=== PATIENT | male | born 1965 | race Caucasian/White ===

== ENCOUNTER 2016-06-05 07:35 | Inpatient (IN) | payer OTHER ==
[2016-06-05] MEDS ORDERED: Magnesium Hydroxide (MOM) 30 mL UDC PO PRN (08:25)
[2016-06-05] MEDS ORDERED: Maalox 30 mL Cup PO PRN (08:25)
[2016-06-05] MEDS ORDERED: Enoxaparin Subq per Pharmacy MC SCH (08:45)
[2016-06-05 09:03] LABS: % BASOPHILS 0.2 % (0.0-2.0); % EOSINOPHILS 0.9 % (0.0-5.0); % LYMPHOCYTES 26.3 % (20.0-50.0); % MONOCYTES 13.1 % (2.0-10.0); % NEUTROPHILS 59.5 % (40.0-80.0); HEMATOCRIT 37.3 % (39.0-49.0); HEMOGLOBIN 13.1 gm/dL (13.2-17.3); MEAN CELL VOLUME 100.6 fl (80-99); MEAN CORPUSCULAR HEMOGLOBIN 35.3 pg (26.0-30.0); MEAN CORPUSCULAR HGB CONC 35.1 pg (28.0-36.0); MEAN PLATELET VOLUME 7.2 fl; PLATELET COUNT 83 Th/cmm (150-400); RED CELL DISTRIBUTION WIDTH 13.9 % (11.5-20.0); WHITE BLOOD COUNT 3.2 Th/cmm (4.8-10.8)
[2016-06-05 09:27] LABS: ALB/GLOB RATIO 0.9 (1.0-1.8); ALKALINE PHOSPHATASE 90 U/L (34-104); ANION GAP 9.9 (7.0-16.0); BUN - UREA NITROGEN 6 mg/dL (7-25); CALCIUM SERUM 8.4 mg/dL (8.6-10.3); CARBON DIOXIDE 26.3 mEq/L (21.0-31.0); CHLORIDE 100 mEq/L (98-107); CREATININE - SERUM 0.5 mg/dL (0.7-1.3); GLUCOSE 96 mg/dL (70-105); POTASSIUM SERUM 4.2 mEq/L (3.5-5.1); SGOT 22 U/L (13-39); SGPT/ALT 10 U/L (7-52); SODIUM SERUM 132 mEq/L (136-145)
[2016-06-05 09:38] VITALS: BP 126/70
[2016-06-05] MEDS ORDERED: Enoxaparin 100 mg/mL 1mL Syr SUBQ SCH (10:30)
[2016-06-05 10:36] LABS: INR 0.97 (0.5-1.4); PROTHROMBIN TIME (TEST) 10.1 SECONDS (9.5-11.5)
[2016-06-05] MEDS: Hydrocodone/APAP 10 mg/325 mg Tab PO PRN (11:17)
[2016-06-05] MEDS ORDERED: INSULIN ASPART SLIDING SCALE 100 UNITS/ML UNIT SUBQ SCH (11:30)
--- NOTE | 2016-06-05 14:02 | History & Physical ---
CHIEF COMPLAINT: Back pain. HISTORY OF PRESENT ILLNESS: The patient is a 51-year-old white male who has been transferred from [facility] ER. The patient presents from [facility] ER with complaints of back pain. The patient was complaining of swelling, erythema, and pain to the left leg for the last few days. The patient states that he has history of DVT in the right leg and was instructed to wear Unna boot on the left leg to prevent DVT in that leg. The patient denies fever or chills. The patient denies chest pain. The patient denies shortness of breath. The patient complains of pain, 10/10, and worse with touch on left lower extremity. PAST MEDICAL HISTORY: COPD, seizures, DVT, right lower extremity. PAST SURGICAL HISTORY: Removal of needle from left foot. ALLERGIES: No known allergies. SOCIAL HISTORY: Positive tobacco use, positive alcohol use. Denies IV drug use. REVIEW OF SYSTEMS: See history of present illness. PHYSICAL EXAMINATION: GENERAL: The patient is awake, alert, nontoxic in appearance. VITAL SIGNS: On admission, blood pressure 126/70. Vital signs at the ER were blood pressure 140/70, pulse 96, temperature 98.1, respiratory rate 18 and O2 on room air. HEENT: Normocephalic, atraumatic. Extraocular movements intact. Oropharynx clear. NECK: Supple, no thyromegaly. No lymphadenopathy. RESPIRATORY: Clear. No wheeze or rhonchi. CARDIOVASCULAR: S1, S2. No murmurs, rubs, or gallops. GASTROINTESTINAL: Soft, nontender, nondistended. Positive bowel sounds. GENITOURINARY: No significant suprapubic tenderness. BACK: No midline tenderness. EXTREMITIES: Equal pulses bilaterally. Edema in the left leg. SKIN: The patient has erythema on left lower leg. PSYCHIATRIC: Negative. NEUROLOGIC: Cranial nerves are intact. Sensation intact. Proprioception intact. Bilateral muscle strength grossly normal. RADIOLOGICAL TESTS: Ultrasound shows left popliteal thrombosis and left groin enlarged lymph node. IMPRESSION: 1. Left lower extremity cellulitis. 2. Left lower extremity (popliteal vein) thrombosis. 3. Chronic obstructive pulmonary disease. 4. Seizure disorder. 5. History of deep venous thrombosis, right lower extremity. PLAN: The patient is admitted to Med-Surg at [facility]. We will obtain Infectious Disease consultation with Dr. Alcira Amado. Hematology consultation will be obtained from Dr. Rice. We will obtain further labs and consultations as needed. JOB# [id number] [facility]
[2016-06-05] MEDS: Morphine Sulfate 2 mg/mL 1mL Syr IVP PRN ×3 (15:08→23:44)
--- NOTE | 2016-06-05 18:16 | Consultation ---
HEMATOLOGY/ONCOLOGY CONSULTATION REFERRING PHYSICIAN: Gagan Lisa M.D. REASON FOR CONSULTATION: Venous thrombosis. HISTORY OF PRESENT ILLNESS: The patient is a 51-year-old male who was complaining of left leg swelling and evaluated with venous duplex in [facility] and found to have venous thrombosis in left popliteal vein. The patient was transferred for insurance reasons to our hospital and he was also found to have mild thrombocytopenia; therefore, I was asked to evaluate. PAST MEDICAL HISTORY: COPD. venous thrombosis of the left lower extremity and he was treated with one month of Coumadin. The circumstances of short duration of Coumadin are unknown. SURGICAL HISTORY: Left foot surgery. SOCIAL HISTORY: Smoker, uses alcohol, and denies drug use. PHYSICAL EXAMINATION: GENERAL: Awake. No . VITAL SIGNS: Stable. No bleeding. CHEST: Good air entry. ABDOMEN: Soft. LABORATORY DATA: White count 3.2, hemoglobin 13.1, and platelets 83,000. Liver functions normal. Creatinine is 0.5. ASSESSMENT AND PLAN: Left lower extremity thrombosis and cellulitis. I agree with treatment with Lovenox to overlap his Coumadin until the ____ not between 2 and 3. Actually, the duration of anticoagulation should be more than 6 months in this patient with unclear precipitating factor. Thank you, Dr. Lisa, for the opportunity to participate in the care of this interesting case with you. JOB# [id number]
[2016-06-05 18:53] LABS: URINE COLOR ORANGE
[2016-06-05 18:54] LABS: URINE BILIRUBIN NEGATIVE (NEGATIVE); URINE BLOOD NEGATIVE (NEGATIVE); URINE GLUCOSE (UA) NEGATIVE (NEGATIVE); URINE KETONE TRACE mg/dL (NEGATIVE); URINE PH 8.5; URINE PROTEIN NEGATIVE (NEGATIVE); URINE RBC NONE SEEN /hpf (0-5)
[2016-06-05 18:55] LABS: URINE BACTERIA OCCASIONAL /hpf (NONE SEEN); URINE EPITHELIAL CELLS OCCASIONAL /lpf (FEW); URINE WBC 0-2 /hpf (0-5)
[2016-06-05] MEDS: Enoxaparin 100 mg/mL 1mL Syr SUBQ SCH (20:14)
--- NOTE | 2016-06-05 21:56 | Admit Criteria Form ---
Admit Criteria Forms - Admit Criteria Diagnosis: CELLULITIS Clinical Indications for Admission to Inpatient Care (Place 'X' for any and all applicable criteria): Admission is indicated for ANY ONE of the following(1)(2)(3)(4)(5): [ ]I. Limb-threatening infection [ ]II. High-risk comorbid condition as indicated by ANY ONE of the following: [ ]a) Uncontrolled diabetes (eg, HbA1c greater than 10% (0.1)) [ ]b) Cirrhosis [ ]c) Neutropenia [ ]d) Asplenia [ ]e) Immunosuppression [ ]f) Symptomatic heart failure [ ]III. Failure of outpatient therapy as indicated by ALL of the following: [ ]a) Progression or no improvement after adequate trial (minimum of 48 hours, with longer period for stable lower extremity infection) [ ]b) Adequate antibiotic regimen as indicated by use of ANY ONE of the following: [ ]i) First-generation cephalosporin (e.g., cephalexin) [ ]ii) Antistaphylococcal penicillin (e.g., dicloxacillin) [ ]iii) Penicillin-allergic patient regimen (clindamycin, extended-spectrum fluoroquinolone, or doxycycline) [ ]iv) Resistant organism (eg, methicillin-resistant Staphylococcus aureus) regimen (6) [ ]c) Outpatient intravenous therapy regimen is not appropriate due to ANY ONE of the following. (7)(8)(9)(10): [ ]i) It was tried and was not successful (eg, progression of infection). [ ]ii) It is not available or cannot be arranged in a clinically appropriate time frame (e.g., the next day). [ ]iii) Clinical presentation (eg, acuity of infection, rapidity of progression, confirmed or suspected bacteremia) is judged to require ALL of the following: [ ]1) Immediate initiation of intravenous therapy ( eg, cannot wait for next day) [ ]2) Intensity of patient monitoring and observation (eg, vital sign measurement, checks for infection progression) that cannot be provided at other than inpatient level of care [ ]IV. Mental status changes [ ]V. Bacteremia [ ]. Hemodynamic instability [ ]VII. Suspected necrotizing soft tissue infection (e.g., gas in tissue)(11)( 12) [ ]VIII. Orbital infection (13)(14) [ ]IX. Associated surgical procedure (e.g., abscess drainage, debridement) not amenable to outpatient, emergency department, or observation care [ ]X. Cutaneous gangrene [ ]XI. High fever (temperature greater than 39.5 degrees C (103.1 degrees F) (oral)) not responsive to outpatient, emergency department, or observation care therapy [X]XIII. Inpatient admission required rather than observation care (Also use Cellulitis: Observation Care as appropriate) because of ANY ONE of the following : [ ]a) Periorbital or perineal infection that is severe or worsening [ ]b) Severe pain requiring acute inpatient management [ ]c) IV fluid to replace significant ongoing (e.g., for over 24 hours) losses (greater than 3L/m2 per day) [ ]d) Compartment syndrome monitoring (17) [ ]e) Strict or protective (eg, laminar flow) isolation [ ]f) Urgent debridement or skin grafting [ ]g) Bone or joint debridement [ ]h) Immediate inpatient surgery [X]i) Other condition, treatment or monitoring requiring inpatient admission Extended stay beyond goal length of stay may be needed for (1)(18): [ ]a) Necrotizing soft tissue infection or fasciitis [ ]b) Gram-negative infection [ ]c) Methicillin-resistant Staphylococcal aureus (MRSA) infection [ ]d) Peripheral venous insufficiency with cellulitis [ ]e) Extensive edema [ ]f) Sepsis or continued Hemodynamic instability [ ]g) Continued high fever or mental status change [ ]h) Bacteremia [ ]i) Active serious comorbid conditions ( eg, heart failure, renal insufficiency) The original [facility] [employer] content created by [facility] [employer] has been revised. The portions of the content which have been revised are identified through the use of italic text or in bold, and [facility] has neither reviewed nor approved the modified material. All other unmodified content is copyright [facility] Please see references footnoted in the original [facility] edition 2016 Admit Criteria Met?: Yes
[2016-06-06] MEDS: Morphine Sulfate 2 mg/mL 1mL Syr IVP PRN ×5 (05:31→21:49)
[2016-06-06 06:10] LABS: INR 1.06 (0.5-1.4)
[2016-06-06 06:18] LABS: ANION GAP 7.9 (7.0-16.0); BUN - UREA NITROGEN 7 mg/dL (7-25); BUN/CREATININE RATIO 11.7; CALCIUM SERUM 8.7 mg/dL (8.6-10.3); CARBON DIOXIDE 27.8 mEq/L (21.0-31.0); CHLORIDE 101 mEq/L (98-107); CREATININE - SERUM 0.6 mg/dL (0.7-1.3); GLUCOSE 84 mg/dL (70-105); POTASSIUM SERUM 3.7 mEq/L (3.5-5.1); SODIUM SERUM 133 mEq/L (136-145)
[2016-06-06 06:51] LABS: HEMATOCRIT 37.5 % (39.0-49.0); HEMOGLOBIN 12.8 gm/dL (13.2-17.3); RED BLOOD COUNT 3.65 Mil/cmm (4.30-5.70); WHITE BLOOD COUNT 3.1 Th/cmm (4.8-10.8)
[2016-06-06 06:52] LABS: % LYMPHOCYTES 36.3 % (20.0-50.0); % MONOCYTES 10.4 % (2.0-10.0); % NEUTROPHILS 51.6 % (40.0-80.0); MEAN CELL VOLUME 102.6 fl (80-99); MEAN CORPUSCULAR HEMOGLOBIN 35.2 pg (26.0-30.0); MEAN CORPUSCULAR HGB CONC 34.3 pg (28.0-36.0); MEAN PLATELET VOLUME 8.3 fl; PLATELET COUNT 84 Th/cmm (150-400); RED CELL DISTRIBUTION WIDTH 13.7 % (11.5-20.0)
[2016-06-06 06:53] LABS: % BASOPHILS 0.2 % (0.0-2.0); % EOSINOPHILS 1.7 % (0.0-5.0); NEUTROPHILE ABSOLUTE 1.6 Th/cmm (1.8-8.0)
[2016-06-06] MEDS: Enoxaparin 100 mg/mL 1mL Syr SUBQ SCH ×2 (09:48→21:48)
[2016-06-06] MEDS ORDERED: Influenza Vaccine 0.5 mL Syr IM ONE (11:00)
[2016-06-06] MEDS ORDERED: Pneumococcal Vaccine 0.5 mL Vial IM ONE (11:00)
[2016-06-06] MEDS ORDERED: Enoxaparin Subq per Pharmacy MC SCH (11:15)
--- NOTE | 2016-06-07 00:29 | Progress Notes ---
SUBJECTIVE: The patient is awake, alert. The patient is on IV antibiotics. The patient receiving inpatient anticoagulation therapy and wound care. PHYSICAL EXAMINATION: VITAL SIGNS: Temperature 97.6, pulse per nursing notes, respiratory rate 18, O2 sat 96% on room air. CARDIOVASCULAR: S1 and S2. RESPIRATORY: Clear. GASTROINTESTINAL: Soft, +BS. EXTREMITIES: Left lower extremity erythema, improved. LABORATORY DATA: Hematology: WBC 3.1, hemoglobin 12.8, hematocrit per labs, platelet count per labs, 10% monocytes. ESR is 38. PT 11, INR is 1.06. Chemistry: Sodium 133, potassium per labs, bicarbonate 27, anion gap per labs, BUN 7, creatinine 0.6. GFR 60, glucose is 84, calcium 8.7. MICROBIOLOGY: Culture results pending. RADIOLOGY: No new results. ASSESSMENT: 1. Leukopenia. 2. Anemia. 3. Thrombocytopenia. 4. Pancytopenia. 5. Hyponatremia. 6. Left lower extremity cellulitis. 7. Left lower extremity popliteal vein thrombosis. 8. Chronic obstructive pulmonary disease. 9. Seizure disorder. 10. Deep vein thrombosis of right lower extremity. PLAN: Continue current medications. Obtain labs in a.m. Continue inpatient wound care. We will obtain PT evaluation. JOB# [id number] [facility]
[2016-06-07] MEDS: Morphine Sulfate 2 mg/mL 1mL Syr IVP PRN ×5 (05:24→22:59)
--- NOTE | 2016-06-07 05:57 | Consultation ---
INFECTIOUS DISEASE CONSULTATION PRIMARY PHYSICIAN: Gagan Lisa M.D. HISTORY OF PRESENT ILLNESS: This is a 51-year-old male who was brought to the Emergency Room with 4-week history of recurrent cellulitis and got worse recently, decided to come to the Emergency Room, where the patient was evaluated and admitted to the hospital. Infectious Disease consultation was called for further treatment. The patient was started on IV antibiotics. Wound culture requested. The patient had ____ possible. The patient initially went to [facility]. PAST MEDICAL HISTORY: COPD. PAST SURGICAL HISTORY: Left foot surgery. SOCIAL HISTORY: Smoker. REVIEW OF SYSTEMS: A 14-point review of system negative except ____. PHYSICAL EXAMINATION: GENERAL: The patient is alert and awake. VITAL SIGNS: Stable. HEENT: Mild pallor. No icterus or plaque. NECK: Supple. No ____. LUNGS: Breath sounds bilateral vesicular. HEART: S1, S2. ABDOMEN: Soft, nontender. EXTREMITIES: Both legs are swollen, left more than the right with multiple small folliculitis and wounds draining yellow liquid. LABORATORY DATA: The patient's venous duplex done at [place] was positive for DVT. White count 3000, hemoglobin is 13 g, platelets 83,000. Creatinine 0.6. DIAGNOSES: 1. Deep vein thrombosis. 2. Left leg cellulitis. 3. Pancytopenia. 4. Active smoker. PLAN: The patient was started on Zosyn. Wound culture. Anticoagulation. Hematology consultation. Rest of the care as ordered in [facility]. Thank you, Dr. Gagan Lisa, for this consultation. JOB# [id number]
[2016-06-07 06:02] LABS: % BASOPHILS 0.8 % (0.0-2.0); % EOSINOPHILS 3.2 % (0.0-5.0); % LYMPHOCYTES 41.9 % (20.0-50.0); % MONOCYTES 9.1 % (2.0-10.0); HEMATOCRIT 38.7 % (39.0-49.0); MEAN CELL VOLUME 102.5 fl (80-99); MEAN CORPUSCULAR HEMOGLOBIN 34.5 pg (26.0-30.0); MEAN CORPUSCULAR HGB CONC 33.6 pg (28.0-36.0); MEAN PLATELET VOLUME 8.6 fl; NEUTROPHILE ABSOLUTE 1.7 Th/cmm (1.8-8.0); PLATELET COUNT 98 Th/cmm (150-400); RED BLOOD COUNT 3.78 Mil/cmm (4.30-5.70); WHITE BLOOD COUNT 3.7 Th/cmm (4.8-10.8)
[2016-06-07 06:32] LABS: BUN - UREA NITROGEN 8 mg/dL (7-25); CALCIUM SERUM 8.8 mg/dL (8.6-10.3); CARBON DIOXIDE 25.3 mEq/L (21.0-31.0); CHLORIDE 103 mEq/L (98-107); CREATININE - SERUM 0.5 mg/dL (0.7-1.3); GLUCOSE 96 mg/dL (70-105); POTASSIUM SERUM 3.3 mEq/L (3.5-5.1); SODIUM SERUM 133 mEq/L (136-145)
[2016-06-07 06:39] LABS: INR 1.48 (0.5-1.4); PROTHROMBIN TIME (TEST) 15.7 SECONDS (9.5-11.5)
[2016-06-07] MEDS: Enoxaparin 100 mg/mL 1mL Syr SUBQ SCH ×2 (10:06→21:48)
--- NOTE | 2016-06-07 16:22 | Diagnostic Imaging Report ---
Abdominal ultrasound HISTORY: Splenomegaly The liver is enlarged. The spleen measures 11.5 x 4.6 x 3.9 cm. No focal hepatic or splenic lesions. The exam of the gallbladder demonstrates intraluminal echogenic densities with acoustic shadowing consistent with cholelithiasis. No biliary dilatation. The pancreas cannot be seen due to bowel gas. The left kidney is somewhat enlarged (14.1 x 5.9 x 5.4 cm). No focal renal lesions or hydronephrosis. No other retroperitoneal or intra-abdominal abnormalities. IMPRESSION: 1. Hepatomegaly 2. Findings consistent with cholelithiasis 3. Mildly enlarged left kidney with no focal lesions or hydronephrosis.
[2016-06-07] MEDS ORDERED: Vancomycin HCl 1.5 GM in Sodium Chloride 0.9% 500 ML IV SCH (18:00)
[2016-06-07] MEDS ORDERED: Potassium Chloride 20 mEq ER Tab PO ONE (20:05)
[2016-06-08] MEDS: Morphine Sulfate 2 mg/mL 1mL Syr IVP PRN ×4 (04:54→20:05)
[2016-06-08 05:42] LABS: INR 1.66 (0.5-1.4); PROTHROMBIN TIME (TEST) 17.8 SECONDS (9.5-11.5)
[2016-06-08 05:47] LABS: HEMATOCRIT 39.1 % (39.0-49.0); HEMOGLOBIN 13.2 gm/dL (13.2-17.3); MEAN CELL VOLUME 102.9 fl (80-99); MEAN CORPUSCULAR HEMOGLOBIN 34.7 pg (26.0-30.0); MEAN CORPUSCULAR HGB CONC 33.7 pg (28.0-36.0); MEAN PLATELET VOLUME 7.9 fl; PLATELET COUNT 115 Th/cmm (150-400); RED CELL DISTRIBUTION WIDTH 13.6 % (11.5-20.0)
[2016-06-08 05:54] LABS: ANION GAP 9.2 (7.0-16.0); BUN - UREA NITROGEN 8 mg/dL (7-25); CALCIUM SERUM 8.6 mg/dL (8.6-10.3); CARBON DIOXIDE 23.6 mEq/L (21.0-31.0); CHLORIDE 104 mEq/L (98-107); CREATININE - SERUM 0.5 mg/dL (0.7-1.3); GLUCOSE 96 mg/dL (70-105); POTASSIUM SERUM 3.8 mEq/L (3.5-5.1); SODIUM SERUM 133 mEq/L (136-145)
[2016-06-08 06:01] LABS: WHITE BLOOD COUNT 3.4 Th/cmm (4.8-10.8)
[2016-06-08] MEDS: Enoxaparin 100 mg/mL 1mL Syr SUBQ SCH ×2 (09:26→20:06)
[2016-06-08] MEDS: Hydrocodone/APAP 10 mg/325 mg Tab PO PRN (09:28)
[2016-06-08 10:19] LABS: EOSINOPHIL 4 % (0-5); NEUTROPHILS 40 % (40-80); TOTAL CELLS COUNTED 100
[2016-06-08 10:20] LABS: PLATELET ESTIMATE DECREASED PLATELETS (NORMAL); PLATELET MORPHOLOGY NORMAL (NORMAL)
[2016-06-08] MEDS: Vancomycin HCl 1.5 GM in Sodium Chloride 0.9% 500 ML IV SCH ×2 (10:52→20:06)
[2016-06-08] MEDS: Hydrocodone/APAP 5mg/325mg Tab PO PRN (13:25)
--- NOTE | 2016-06-08 17:29 | Infectious Disease Prog Note ---
Infectious Disease Subjective - Review of Systems Service Date: 06/08/16 Subjective: cc cellulitis dvt hpi- pt wound cx gnr on iv bax ros no fever o/e nvss chest clar abd soft cellulitis less Infectious Disease Objective - Results Result Diagrams: 06/08/16 05:15 06/08/16 05:15 Recent Labs: Laboratory Last Values WBC 3.4 Th/cmm (4.8-10.8) L 06/08/16 05:15 RBC 3.80 Mil/cmm (4.30-5.70) L 06/08/16 05:15 Hgb 13.2 gm/dL (13.2-17.3) 06/08/16 05:15 Hct 39.1 % (39.0-49.0) 06/08/16 05:15 MCV 102.9 fl (80-99) H 06/08/16 05:15 MCH 34.7 pg (26.0-30.0) H 06/08/16 05:15 MCHC Differential 33.7 pg (28.0-36.0) 06/08/16 05:15 RDW 13.6 % (11.5-20.0) 06/08/16 05:15 Plt Count 115 Th/cmm (150-400) L 06/08/16 05:15 MPV 7.9 fl 06/08/16 05:15 Neutrophils % 45.0 % (40.0-80.0) 06/07/16 05:15 Lymphocytes % 41.9 % (20.0-50.0) 06/07/16 05:15 Monocytes % 9.1 % (2.0-10.0) 06/07/16 05:15 Eosinophils % 3.2 % (0.0-5.0) 06/07/16 05:15 Basophils % 0.8 % (0.0-2.0) 06/07/16 05:15 Neutrophils (Manual) 40 % (40-80) 06/08/16 05:15 Lymphocytes 40 % (20-50) 06/08/16 05:15 Monocytes 14 % (2-10) H 06/08/16 05:15 Eosinophils 4 % (0-5) 06/08/16 05:15 Atypical Lymphocytes 2 % 06/08/16 05:15 Platelet Estimate DECREASED PLATELETS (NORMAL) 06/08/16 05:15 Platelet Morphology NORMAL (NORMAL) 06/08/16 05:15 RBC Morph Micro Appear NORMAL (NORMAL) 06/08/16 05:15 ESR 33 mm/hr (0-20) H 06/08/16 05:15 PT 17.8 SECONDS (9.5-11.5) H 06/08/16 05:15 INR 1.66 (0.5-1.4) H 06/08/16 05:15 Sodium 133 mEq/L (136-145) L 06/08/16 05:15 Potassium 3.8 mEq/L (3.5-5.1) 06/08/16 05:15 Chloride 104 mEq/L (98-107) 06/08/16 05:15 Carbon Dioxide 23.6 mEq/L (21.0-31.0) 06/08/16 05:15 Anion Gap 9.2 (7.0-16.0) 06/08/16 05:15 BUN 8 mg/dL (7-25) 06/08/16 05:15 Creatinine 0.5 mg/dL (0.7-1.3) L 06/08/16 05:15 Est GFR ( Amer) > 60.0 ml/min (>90) 06/08/16 05:15 Est GFR (Non-Af Amer) > 60.0 ml/min 06/08/16 05:15 BUN/Creatinine Ratio 16.0 06/08/16 05:15 Glucose 96 mg/dL (70-105) 06/08/16 05:15 POC Glucose 95 MG/DL (70 - 105) 06/05/16 11:22 Calcium 8.6 mg/dL (8.6-10.3) 06/08/16 05:15 Total Bilirubin 1.0 mg/dL (0.3-1.0) 06/05/16 08:50 AST 22 U/L (13-39) 06/05/16 08:50 ALT 10 U/L (7-52) 06/05/16 08:50 Alkaline Phosphatase 90 U/L (34-104) 06/05/16 08:50 C-Reactive Protein 3.9 mg/dL (0.0-0.9) H 06/08/16 05:15 Total Protein 6.9 gm/dL (6.0-8.3) 06/05/16 08:50 Albumin 3.3 gm/dL (4.2-5.5) L 06/05/16 08:50 Globulin 3.6 gm/dL 06/05/16 08:50 Albumin/Globulin Ratio 0.9 (1.0-1.8) L 06/05/16 08:50 Urine Source CLEAN C 06/05/16 17:10 Urine Color ORANGE 06/05/16 17:10 Urine Clarity CLEAR (CLEAR) 06/05/16 17:10 Urine pH 8.5 06/05/16 17:10 Ur Specific [place] 1.015 (1.005-1.030) 06/05/16 17:10 Urine Protein NEGATIVE mg/dL (NEGATIVE) 06/05/16 17:10 Urine Glucose (UA) NEGATIVE mg/dL (NEGATIVE) 06/05/16 17:10 Urine Ketones TRACE mg/dL (NEGATIVE) 06/05/16 17:10 Urine Blood NEGATIVE (NEGATIVE) 06/05/16 17:10 Urine Nitrate NEGATIVE (NEGATIVE) 06/05/16 17:10 Urine Bilirubin NEGATIVE (NEGATIVE) 06/05/16 17:10 Urine Urobilinogen 1.0 E.U./dL (0.2 - 1.0) 06/05/16 17:10 Ur Leukocyte Esterase NEGATIVE (NEGATIVE) 06/05/16 17:10 Urine RBC NONE SEEN /hpf (0-5) 06/05/16 17:10 Urine WBC 0-2 /hpf (0-5) 06/05/16 17:10 Ur Epithelial Cells OCCASIONAL /lpf (FEW) 06/05/16 17:10 Urine Bacteria OCCASIONAL /hpf (NONE SEEN) 06/05/16 17:10 Urine Yeast FEW /hpf (NONE SEEN) H 06/05/16 17:10 - Physical Exam Vitals and I&O: Vital Signs Temp 98.4 F 06/08/16 12:00 Pulse 58 06/08/16 12:00 Resp 17 06/08/16 12:00 BP 127/73 06/08/16 12:00 Pulse Ox 98 06/08/16 12:00 Intake & Output 06/07/16 06/08/16 06/08/16 18:59 06:59 18:59 Intake Total 200 100 50 Balance 200 100 50 Intake: Intake, IV Amount 100 100 50 Piperacillin Sodium/ 100 100 50 Tazobact 3.375 gm In Sodium Chloride 0.9% 50 ml @ 100 mls/hr IV Q6HR [facility] Rx#:[id number] Oral 100 Other: # Voids 3 Active Medications: Current Medications Acetaminophen (Tylenol) 650 mg PO Q6H PRN PRN Reason: Mild Pain/Headache/T above 101 Stop: 08/04/16 08:24 Acetaminophen/Hydrocodone Bitart ([place] 10 Mg/325 Mg) 1 tab PO Q6H PRN PRN Reason: Pain (Severe) Stop: 08/04/16 08:24 Last Admin: 06/08/16 09:28 Dose: 1 tab Acetaminophen/Hydrocodone Bitart ([place] 5mg/325mg) 1 tab PO Q6H PRN PRN Reason: Moderate Pain Stop: 08/04/16 08:24 Last Admin: 06/08/16 13:25 Dose: 1 tab Al Hydrox/Mg Hydrox/Simethicone (Maalox) 30 ml PO Q6H PRN PRN Reason: Constipation Stop: 08/04/16 08:24 Enoxaparin Sodium (Lovenox) 90 mg SUBQ Q12HR [facility] Stop: 08/04/16 20:59 Last Admin: 06/08/16 09:26 Dose: 90 mg Gabapentin (Neurontin) 300 mg PO TID [facility] Stop: 08/04/16 08:59 Last Admin: 06/08/16 13:24 Dose: 300 mg Piperacillin Sod/Tazobactam (Sod 3.375 gm/ Sodium Chloride) 50 mls @ 100 mls/ hr IV Q6HR [facility] Stop: 08/04/16 11:59 Last Infusion: 06/08/16 16:54 Dose: Infused Vancomycin HCl 1.5 gm/ Sodium (Chloride) 500 mls @ 250 mls/hr IV Q12H [facility] Stop: 08/07/16 08:59 Last Admin: 06/08/16 10:52 Dose: 250 mls/hr Lorazepam (Ativan) 1 mg PO Q6H PRN; Protocol PRN Reason: Anxiety/Agitation Stop: 08/04/16 08:24 Last Admin: 06/08/16 13:25 Dose: 1 mg Magnesium Hydroxide (Milk Of Magnesia) 30 ml PO HS PRN PRN Reason: Constipation Stop: 08/04/16 08:24 Miscellaneous (Lovenox Subq Per Pharmacy) 1 ea PRN TUCKER PRN Reason: Protocol Stop: 08/04/16 08:44 Miscellaneous (Zosyn Iv Per Pharmacy) 1 ea PRN PRN PRN Reason: PROTOCOL Stop: 08/04/16 08:37 Miscellaneous (Vancomycin Iv Per Pharmacy) 1 ea PRN [facility]UCKER Stop: 08/06/16 17:29 Morphine Sulfate (Morphine) 1 mg IVP Q4HR PRN PRN Reason: Pain (Severe) Stop: 08/04/16 13:16 Last Admin: 06/08/16 15:34 Dose: 1 mg Ondansetron HCl (Zofran Odt) 4 mg PO Q6H PRN PRN Reason: Nausea / Vomiting Stop: 08/04/16 08:24 Phenytoin (Dilantin) 100 mg PO TID [facility] Stop: 08/04/16 08:59 Last Admin: 06/08/16 13:24 Dose: 100 mg Sodium Chloride (Saline Flush) 10 ml IV QSHIFT [facility] Stop: 08/04/16 19:59 Last Admin: 06/08/16 09:26 Dose: 10 ml Warfarin Sodium (Coumadin Per Pharmacy) 1 ea PRN PRN; Protocol PRN Reason: RX MONITORING Stop: 08/04/16 08:32
--- NOTE | 2016-06-08 18:23 | Progress Notes ---
SUBJECTIVE: The patient is awake, alert. The patient is receiving inpatient rehab therapy. The patient is receiving inpatient wound care. The patient is on IV antibiotics. The patient is receiving inpatient anticoagulation therapy. OBJECTIVE: VITAL SIGNS: Temperature 98.4, pulse 77, blood pressure 133/70, respiratory rate 18, O2 sat 97% on room air. CARDIOVASCULAR: S1 and S2. RESPIRATORY: Clear. GASTROINTESTINAL: Soft. Positive bowel sounds. LABORATORY DATA: Hematology: WBC per labs, hemoglobin 13.0, hematocrit 38.7, platelet count of 98, no left shift noted. ESR is 31, PT 15.7, INR 1.48. Chemistry: Sodium 133, potassium 3.3, chloride 103, bicarbonate per labs, anion gap 8, BUN 8, creatinine 0.5. GFR is 160, glucose is 96, calcium 8.8, C-reactive protein 7.0. MICROBIOLOGY: MRSA screening from 06/05/2016 negative. Wound culture from 06/05/2016 shows gram-negative rods. ASSESSMENT: 1. Leukopenia. 2. Anemia. 3. Thrombocytopenia. 4. Pancytopenia. 5. Hyponatremia. 6. Hypokalemia. 7. Sepsis. 8. Left lower extremity cellulitis (secondary to gram-negative rods). 9. Left lower extremity popliteal vein thrombosis. 10. Chronic obstructive pulmonary disease. 11. Seizure disorder. 12. History of deep venous thrombosis of right lower extremity. PLAN: Continue current medication and treatment. Obtain labs in a.m. Inpatient wound care. Inpatient rehab therapy. Awaiting final culture results. Further recommendations as per consults. abdominal ultrasound performed on 06/07/2016 shows hepatomegaly, microscopic cholelithiasis, mildly enlarged left kidney with no focal lesions or hydronephrosis. JOB# [id number] [facility]
[2016-06-09] MEDS: Morphine Sulfate 2 mg/mL 1mL Syr IVP PRN ×5 (00:28→20:19)
[2016-06-09] MEDS: Enoxaparin 100 mg/mL 1mL Syr SUBQ SCH ×2 (08:42→20:33)
[2016-06-09] MEDS: Vancomycin HCl 1.5 GM in Sodium Chloride 0.9% 500 ML IV SCH (08:43)
[2016-06-09 09:10] LABS: INR 1.4 (0.5-1.4); PROTHROMBIN TIME (TEST) 14.8 SECONDS (9.5-11.5)
[2016-06-09] MEDS: Ampicillin Sodium/Sulbactam 3 GM in Sodium Chloride 0.9% 100 ML IV SCH (19:03)
[2016-06-09] MEDS: Vancomycin HCl 1.75 GM in Sodium Chloride 0.9% 500 ML IV SCH (21:00)
--- NOTE | 2016-06-09 21:39 | Progress Notes ---
SUBJECTIVE: The patient is awake and alert. The patient is receiving inpatient anticoagulation therapy. The patient is on IV antibiotics. The patient is receiving inpatient wound care. The patient is receiving inpatient rehab therapy. OBJECTIVE: VITAL SIGNS: Temperature 97.7, pulse 91, blood pressure 124/65, respiratory 18, and O2 sat 94% on room air. CARDIOVASCULAR: S1 and S2. RESPIRATORY: Clear. GASTROINTESTINAL: Soft. Positive bowel sounds. LABORATORY DATA: Hematology: PT 14.8 and INR 1.4. Microbiology: MRSA screen from 06/05/2016 is negative. Left lower extremity wound culture from 06/05/2016 shows acinetobacter lwoffii. Radiology: Abdominal ultrasound from 06/07/2016 shows cardiomegaly, chololithiasis, and mildly enlarged left kidney. ASSESSMENT: 1. Sepsis. 2. Left lower extremity cellulitis secondary to acinetobacter lwoffii. 3. Hepatomegaly. 4. Cholelithiasis. 5. Chronic obstructive pulmonary disease. 6. Seizure disorder. 7. Left lower extremity popliteal vein thrombosis. 8. History of deep vein thrombosis of right lower extremity. PLAN: Continue current medication and treatment. Obtain labs in a.m. Continue inpatient wound care. Continue inpatient rehab therapy. Awaiting final culture results. Further recommendations per consults. JOB# [id number]
[2016-06-10] MEDS: Ampicillin Sodium/Sulbactam 3 GM in Sodium Chloride 0.9% 100 ML IV SCH ×4 (00:31→17:09)
[2016-06-10] MEDS: Morphine Sulfate 2 mg/mL 1mL Syr IVP PRN ×5 (00:38→21:05)
--- NOTE | 2016-06-10 04:31 | Progress Notes ---
SUBJECTIVE: The patient is awake, alert. The patient is on anticoagulation therapy. The patient is on IV antibiotics. The patient receiving inpatient wound care. The patient is receiving inpatient rehab therapy. OBJECTIVE: VITAL SIGNS: Temperature is 98.4, pulse 68, blood pressure per nursing, respirations 18, O2 sat 98% on room air. CARDIOVASCULAR: S1 and S2. RESPIRATORY: Clear. GASTROINTESTINAL: Soft. Positive bowel sounds. LABORATORY DATA: Hematology: WBC 3.4, hemoglobin 13.2, hematocrit 39.1, platelet count 115, 14% monocytes. ESR is 33, PT 17.8, INR 1.66 Chemistry: Sodium is 133, potassium 3.8, chloride 104, bicarbonate 23, anion gap 9.2, BUN 8, creatinine 0.5. GFR is more than 60, glucose is 96, calcium 8.6. C-reactive protein 3.9. Microbiology: MRSA screen 06/05/2016 negative. Wound culture from left leg shows Acinetobacter lwoffii. ASSESSMENT: 1. Sepsis. 2. Left lower extremity cellulitis secondary to Acinetobacter lwoffii. 3. Leukopenia. 4. Thrombocytopenia. 5. Hyponatremia. 6. Left lower extremity popliteal vein thrombosis. 7. Chronic obstructive pulmonary disease. 8. Seizure disorder. 9. History of deep venous thrombosis of right lower extremity. 10. Thyromegaly. 11. Cholelithiasis. PLAN: Continue current medications. Obtain labs a.m. Continue anticoagulation therapy. Continue inpatient wound care. Further consults. JOB# [id number] [facility]
[2016-06-10 06:05] LABS: HEMATOCRIT 40.6 % (39.0-49.0); MEAN CELL VOLUME 102.8 fl (80-99); MEAN CORPUSCULAR HEMOGLOBIN 35.5 pg (26.0-30.0); MEAN CORPUSCULAR HGB CONC 34.6 pg (28.0-36.0); PLATELET COUNT 135 Th/cmm (150-400); RED BLOOD COUNT 3.95 Mil/cmm (4.30-5.70); RED CELL DISTRIBUTION WIDTH 13.9 % (11.5-20.0)
[2016-06-10 06:13] LABS: WHITE BLOOD COUNT 4.3 Th/cmm (4.8-10.8)
[2016-06-10 06:42] LABS: INR 1.49 (0.5-1.4); PROTHROMBIN TIME (TEST) 15.8 SECONDS (9.5-11.5)
[2016-06-10 06:48] LABS: ANION GAP 10.7 (7.0-16.0); BUN - UREA NITROGEN 10 mg/dL (7-25); CALCIUM SERUM 9.2 mg/dL (8.6-10.3); CARBON DIOXIDE 21.9 mEq/L (21.0-31.0); CHLORIDE 104 mEq/L (98-107); CREATININE - SERUM 0.5 mg/dL (0.7-1.3); GLUCOSE 96 mg/dL (70-105); POTASSIUM SERUM 3.6 mEq/L (3.5-5.1); SODIUM SERUM 133 mEq/L (136-145)
[2016-06-10 08:26] LABS: BASOPHIL 1 % (0-3); EOSINOPHIL 2 % (0-5); NEUTROPHILS 44 % (40-80); TOTAL CELLS COUNTED 100
[2016-06-10 08:27] LABS: ANISOCYTOSIS 1+; PLATELET ESTIMATE DECREASED PLATELETS (NORMAL); PLATELET MORPHOLOGY NORMAL (NORMAL)
[2016-06-10] MEDS: Enoxaparin 100 mg/mL 1mL Syr SUBQ SCH ×2 (08:52→21:08)
[2016-06-10] MEDS: Vancomycin HCl 1.75 GM in Sodium Chloride 0.9% 500 ML IV SCH ×2 (08:52→21:08)
[2016-06-11] MEDS: Ampicillin Sodium/Sulbactam 3 GM in Sodium Chloride 0.9% 100 ML IV SCH ×4 (00:48→18:22)
[2016-06-11] MEDS: Morphine Sulfate 2 mg/mL 1mL Syr IVP PRN ×6 (01:17→22:35)
[2016-06-11 06:49] LABS: HEMATOCRIT 39.5 % (39.0-49.0); HEMOGLOBIN 13.5 gm/dL (13.2-17.3); MEAN CELL VOLUME 101.4 fl (80-99); MEAN CORPUSCULAR HEMOGLOBIN 34.6 pg (26.0-30.0); MEAN CORPUSCULAR HGB CONC 34.2 pg (28.0-36.0); MEAN PLATELET VOLUME 8.3 fl; PLATELET COUNT 139 Th/cmm (150-400); RED CELL DISTRIBUTION WIDTH 13.7 % (11.5-20.0); WHITE BLOOD COUNT 4.2 Th/cmm (4.8-10.8)
[2016-06-11 06:56] LABS: INR 1.74 (0.5-1.4); PROTHROMBIN TIME (TEST) 18.6 SECONDS (9.5-11.5)
[2016-06-11 07:05] LABS: ALB/GLOB RATIO 0.9 (1.0-1.8); ALKALINE PHOSPHATASE 70 U/L (34-104); ANION GAP 9.9 (7.0-16.0); BILIRUBIN,TOTAL 0.5 mg/dL (0.3-1.0); BUN - UREA NITROGEN 9 mg/dL (7-25); CALCIUM SERUM 9.5 mg/dL (8.6-10.3); CARBON DIOXIDE 24.9 mEq/L (21.0-31.0); CHLORIDE 104 mEq/L (98-107); CREATININE - SERUM 0.5 mg/dL (0.7-1.3); GLUCOSE 95 mg/dL (70-105); POTASSIUM SERUM 3.8 mEq/L (3.5-5.1); SGOT 36 U/L (13-39); SGPT/ALT 24 U/L (7-52); SODIUM SERUM 135 mEq/L (136-145)
--- NOTE | 2016-06-11 07:10 | Progress Notes ---
SUBJECTIVE: The patient is awake, alert. The patient is on IV antibiotics. The patient received inpatient wound care. The patient received inpatient rehab therapy. The patient received inpatient anticoagulation therapy. OBJECTIVE: VITAL SIGNS: Temperature 97.2, pulse 97, blood pressure 126/95, respirations 18 and O2 saturation of 95% on room air. CARDIOVASCULAR: S1 and S2. RESPIRATORY: Clear. ABDOMEN: Soft and positive bowel sounds. LABORATORY DATA: Hematology: WBC of 4.3, hemoglobin 14.0, hematocrit per labs, platelet count of 135 and 11% monocytes. ESR is 33, PT 15.8 and INR 1.49. Chemistry: Sodium 133, potassium 3.6, chloride 104, bicarbonate 21, anion gap 10, BUN 10 and creatinine 0.5. GFR is more than 60, glucose 96, calcium 9.2. C-reactive protein 1.8. MICROBIOLOGY DATA: MRSA screen from June 05 negative. Left leg wound culture from June 05 show Acinetobacter lwoffii. ASSESSMENT: 1. Sepsis. 2. Left lower extremity cellulitis secondary to acinetobacter lwoffii. 3. Leukopenia. 4. Thrombocytopenia. 5. Hyponatremia. 6. Hepatomegaly. 7. Cholelithiasis. 8. Chronic obstructive pulmonary disease. 9. Seizure disorder. 10. Left lower extremity popliteal vein thrombosis. 11. History of deep venous thrombosis of right lower extremity. PLAN: Continue current medications and treatment. Obtain labs in a.m. Continue inpatient wound care. Continue inpatient rehab therapy. Awaiting final culture results. Further recommendations per consult. Case management for discharge planning. JOB# [id number] [facility]
[2016-06-11] MEDS: Enoxaparin 100 mg/mL 1mL Syr SUBQ SCH ×2 (08:40→21:35)
[2016-06-11] MEDS: Vancomycin HCl 1.75 GM in Sodium Chloride 0.9% 500 ML IV SCH ×2 (08:41→21:37)
[2016-06-11 10:53] LABS: EOSINOPHIL 2 % (0-5); NEUTROPHILS 38 % (40-80); TOTAL CELLS COUNTED 100
[2016-06-11 10:55] LABS: ANISOCYTOSIS 1+; PLATELET ESTIMATE DECREASED PLATELETS (NORMAL); PLATELET MORPHOLOGY NORMAL (NORMAL)
[2016-06-12] MEDS: Ampicillin Sodium/Sulbactam 3 GM in Sodium Chloride 0.9% 100 ML IV SCH ×4 (00:11→17:24)
[2016-06-12] MEDS: Morphine Sulfate 2 mg/mL 1mL Syr IVP PRN ×5 (04:21→21:27)
[2016-06-12 06:01] LABS: HEMATOCRIT 39.5 % (39.0-49.0); HEMOGLOBIN 13.3 gm/dL (13.2-17.3); MEAN CORPUSCULAR HEMOGLOBIN 34.7 pg (26.0-30.0); MEAN CORPUSCULAR HGB CONC 33.6 pg (28.0-36.0); MEAN PLATELET VOLUME 8.2 fl; PLATELET COUNT 144 Th/cmm (150-400); RED BLOOD COUNT 3.83 Mil/cmm (4.30-5.70); RED CELL DISTRIBUTION WIDTH 13.5 % (11.5-20.0); WHITE BLOOD COUNT 4.7 Th/cmm (4.8-10.8)
[2016-06-12 06:34] LABS: ANION GAP 8.2 (7.0-16.0); BUN - UREA NITROGEN 9 mg/dL (7-25); CALCIUM SERUM 9.3 mg/dL (8.6-10.3); CARBON DIOXIDE 24.5 mEq/L (21.0-31.0); CHLORIDE 105 mEq/L (98-107); CREATININE - SERUM 0.5 mg/dL (0.7-1.3); GLUCOSE 89 mg/dL (70-105); POTASSIUM SERUM 3.7 mEq/L (3.5-5.1); SODIUM SERUM 134 mEq/L (136-145)
--- NOTE | 2016-06-12 07:57 | Progress Notes ---
SUBJECTIVE: The patient is awake and alert. The patient is on IV antibiotics. The patient received inpatient wound care. The patient received inpatient rehab therapy. OBJECTIVE: VITAL SIGNS: Temperature 98, pulse 83, blood pressure ____, respiratory rate 18 and O2 is 94% on room air. CARDIOVASCULAR: S1 and S2. RESPIRATORY: Clear. ABDOMEN: Soft. Positive bowel sounds. LABORATORY DATA: Hematology, WBC 4.2, hemoglobin 13.5, hematocrit 39.5, platelet count of 139, 45% lymphocytes and 15% monocytes. ESR is 47. PT 18.6 and INR 1.74. Chemistry: Sodium 135, potassium 3.8, chloride 104, bicarbonate 24, anion gap 9.9, BUN 9 and creatinine 0.5. GFR is more than 60, glucose 95. Calcium is 9.5, total bili 0.5, AST 36, ALT 24, alkaline phosphatase is per labs, total protein 7.1, albumin 3.4, globulin 3.7, vancomycin trough 13.6. MICROBIOLOGY: MRSA screen from June 05 negative. Left lower extremity wound culture from June 05 shows Acinetobacter lwoffii. ASSESSMENT: 1. Sepsis. 2. Left lower extremity cellulitis secondary to Acinetobacter lwoffii. 3. Leukopenia. 4. Thrombocytopenia. 5. Hyponatremia. 6. Hypoalbuminemia. 7. Hepatomegaly. 8. Cholelithiasis. 9. Chronic obstructive pulmonary disease. 10. Seizure disorder. 11. Left lower extremity popliteal vein deep vein thrombosis. 12. Deep venous thrombosis of right lower extremity. PLAN: Continue current medications and treatment. Obtain labs in a.m. Continue inpatient wound care. Continue inpatient rehab therapy. Further recommendations per consults. . network project manager for discharge planning. JOB# [id number] [facility]
[2016-06-12] MEDS: Enoxaparin 100 mg/mL 1mL Syr SUBQ SCH ×2 (08:24→21:07)
[2016-06-12 08:46] LABS: BAND NEUTROPHILE 2 % (0-10); BASOPHIL 2 % (0-3); EOSINOPHIL 1 % (0-5); NEUTROPHILS 50 % (40-80); TOTAL CELLS COUNTED 100
[2016-06-12 08:47] LABS: ANISOCYTOSIS 1+; PLATELET ESTIMATE ADEQUATE (NORMAL); PLATELET MORPHOLOGY NORMAL (NORMAL)
[2016-06-12] MEDS: Vancomycin HCl 1.75 GM in Sodium Chloride 0.9% 500 ML IV SCH (09:50)
[2016-06-12 11:27] LABS: INR 2.11 (0.5-1.4); PROTHROMBIN TIME (TEST) 22.8 SECONDS (9.5-11.5)
[2016-06-13] MEDS: Ampicillin Sodium/Sulbactam 3 GM in Sodium Chloride 0.9% 100 ML IV SCH ×3 (00:17→11:19)
[2016-06-13] MEDS: Hydrocodone/APAP 5mg/325mg Tab PO PRN ×4 (03:06→22:26)
--- NOTE | 2016-06-13 04:26 | Progress Notes ---
SUBJECTIVE: The patient is awake and alert. The patient is on IV antibiotics. The patient is receiving inpatient rehab therapy. The patient is receiving inpatient wound care. The patient is receiving inpatient anticoagulation therapy. OBJECTIVE: VITAL SIGNS: Temperature 97.8, pulse 81, blood pressure 112/61, respiratory rate 18, O2 saturation 97% on room air. CARDIOVASCULAR: S1 and S2. RESPIRATORY: Clear. GASTROINTESTINAL: Soft. Positive bowel sounds. LABORATORY DATA: Hematology: WBC of 4.7, hemoglobin 13.3, hematocrit per labs, platelet count per labs, no left shift noted. ESR is 31. PT 22.8, INR 2.11. Chemistry: Sodium 134, potassium per labs, chloride per labs, bicarbonate 24, anion gap 8.2, BUN 9, creatinine 0.5. GFR is more than 60. Glucose is 89, calcium 9.3. MICROBIOLOGY: MRSA screen from 06/05/2016, negative. Left leg wound culture from 06/05/2016 shows Acinetobacter lwoffii. ASSESSMENT: 1. Sepsis. 2. Left lower extremity cellulitis secondary to Acinetobacter lwoffii. 3. Leukopenia. 5. Thrombocytopenia. 6. Hyponatremia. 7. Hepatomegaly. 8. Cholelithiasis. 9. Chronic obstructive pulmonary disease. 10. Seizure disorder. 11. Left lower extremity popliteal vein deep venous thrombosis. 12. Deep venous thrombosis of right lower extremity. PLAN: Continue current medication and treatment. Obtain labs in a.m. Inpatient wound care. Continue inpatient rehab therapy. Further consults. We will stop Lovenox. manager reading for discharge planning. JOB# [id number] [facility]
[2016-06-13 06:24] LABS: % BASOPHILS 0.8 % (0.0-2.0); % EOSINOPHILS 2.2 % (0.0-5.0); % MONOCYTES 14.7 % (2.0-10.0); % NEUTROPHILS 48.3 % (40.0-80.0); HEMATOCRIT 38.4 % (39.0-49.0); MEAN CELL VOLUME 101.5 fl (80-99); MEAN CORPUSCULAR HEMOGLOBIN 34.4 pg (26.0-30.0); MEAN CORPUSCULAR HGB CONC 33.8 pg (28.0-36.0); MEAN PLATELET VOLUME 8.4 fl; NEUTROPHILE ABSOLUTE 2.6 Th/cmm (1.8-8.0); PLATELET COUNT 163 Th/cmm (150-400); RED BLOOD COUNT 3.78 Mil/cmm (4.30-5.70); RED CELL DISTRIBUTION WIDTH 13.3 % (11.5-20.0); WHITE BLOOD COUNT 5.1 Th/cmm (4.8-10.8)
[2016-06-13 07:04] LABS: INR 1.67 (0.5-1.4); PROTHROMBIN TIME (TEST) 17.9 SECONDS (9.5-11.5)
[2016-06-13 08:11] LABS: BUN - UREA NITROGEN 12 mg/dL (7-25); CALCIUM SERUM 9.3 mg/dL (8.6-10.3); CARBON DIOXIDE 21.7 mEq/L (21.0-31.0); CHLORIDE 104 mEq/L (98-107); CREATININE - SERUM 0.5 mg/dL (0.7-1.3); GLUCOSE 98 mg/dL (70-105); POTASSIUM SERUM 3.7 mEq/L (3.5-5.1); SODIUM SERUM 134 mEq/L (136-145)
[2016-06-13] MEDS: Enoxaparin 100 mg/mL 1mL Syr SUBQ SCH ×2 (08:44→20:53)
--- NOTE | 2016-06-13 14:05 | Infectious Disease Prog Note ---
Infectious Disease Subjective - Review of Systems Service Date: 06/13/16 Subjective: cc cellulitis dvt hpi- pt wound cx acinitobacter, schedule for d/c plan prescption given on iv bax ros no fever o/e nvss chest clar abd soft cellulitis less Infectious Disease Objective - Results Result Diagrams: 06/13/16 05:31 06/13/16 05:31 Recent Labs: Laboratory Last Values WBC 5.1 Th/cmm (4.8-10.8) 06/13/16 05:31 RBC 3.78 Mil/cmm (4.30-5.70) L 06/13/16 05:31 Hgb 13.0 gm/dL (13.2-17.3) L 06/13/16 05:31 Hct 38.4 % (39.0-49.0) L 06/13/16 05:31 MCV 101.5 fl (80-99) H 06/13/16 05:31 MCH 34.4 pg (26.0-30.0) H 06/13/16 05:31 MCHC Differential 33.8 pg (28.0-36.0) 06/13/16 05:31 RDW 13.3 % (11.5-20.0) 06/13/16 05:31 Plt Count 163 Th/cmm (150-400) 06/13/16 05:31 MPV 8.4 fl 06/13/16 05:31 Neutrophils % 48.3 % (40.0-80.0) 06/13/16 05:31 Band Neutrophils % 2 % (0-10) 06/12/16 05:20 Lymphocytes % 34.0 % (20.0-50.0) 06/13/16 05:31 Monocytes % 14.7 % (2.0-10.0) H 06/13/16 05:31 Eosinophils % 2.2 % (0.0-5.0) 06/13/16 05:31 Basophils % 0.8 % (0.0-2.0) 06/13/16 05:31 Neutrophils (Manual) 50 % (40-80) 06/12/16 05:20 Lymphocytes 36 % (20-50) 06/12/16 05:20 Monocytes 9 % (2-10) 06/12/16 05:20 Eosinophils 1 % (0-5) 06/12/16 05:20 Basophils 2 % (0-3) 06/12/16 05:20 Atypical Lymphocytes 2 % 06/08/16 05:15 Platelet Estimate ADEQUATE (NORMAL) 06/12/16 05:20 Platelet Morphology NORMAL (NORMAL) 06/12/16 05:20 Anisocytosis 1+ 06/12/16 05:20 RBC Morph Micro Appear ABNORMAL (NORMAL) 06/12/16 05:20 ESR 46 mm/hr (0-20) H 06/13/16 05:31 PT 17.9 SECONDS (9.5-11.5) H 06/13/16 05:31 INR 1.67 (0.5-1.4) H 06/13/16 05:31 Sodium 134 mEq/L (136-145) L 06/13/16 05:31 Potassium 3.7 mEq/L (3.5-5.1) 06/13/16 05:31 Chloride 104 mEq/L (98-107) 06/13/16 05:31 Carbon Dioxide 21.7 mEq/L (21.0-31.0) 06/13/16 05:31 Anion Gap 12.0 (7.0-16.0) 06/13/16 05:31 BUN 12 mg/dL (7-25) 06/13/16 05:31 Creatinine 0.5 mg/dL (0.7-1.3) L 06/13/16 05:31 Est GFR ( Amer) > 60.0 ml/min (>90) 06/13/16 05:31 Est GFR (Non-Af Amer) > 60.0 ml/min 06/13/16 05:31 BUN/Creatinine Ratio 24.0 06/13/16 05:31 Glucose 98 mg/dL (70-105) 06/13/16 05:31 POC Glucose 95 MG/DL (70 - 105) 06/05/16 11:22 Calcium 9.3 mg/dL (8.6-10.3) 06/13/16 05:31 Total Bilirubin 0.5 mg/dL (0.3-1.0) 06/11/16 06:00 AST 36 U/L (13-39) 06/11/16 06:00 ALT 24 U/L (7-52) 06/11/16 06:00 Alkaline Phosphatase 70 U/L (34-104) 06/11/16 06:00 C-Reactive Protein mg/dL (0.0-0.9) 06/12/16 05:20 Total Protein 7.1 gm/dL (6.0-8.3) 06/11/16 06:00 Albumin 3.4 gm/dL (4.2-5.5) L 06/11/16 06:00 Globulin 3.7 gm/dL 06/11/16 06:00 Albumin/Globulin Ratio 0.9 (1.0-1.8) L 06/11/16 06:00 Urine Source CLEAN C 06/05/16 17:10 Urine Color ORANGE 06/05/16 17:10 Urine Clarity CLEAR (CLEAR) 06/05/16 17:10 Urine pH 8.5 06/05/16 17:10 Ur Specific [place] 1.015 (1.005-1.030) 06/05/16 17:10 Urine Protein NEGATIVE mg/dL (NEGATIVE) 06/05/16 17:10 Urine Glucose (UA) NEGATIVE mg/dL (NEGATIVE) 06/05/16 17:10 Urine Ketones TRACE mg/dL (NEGATIVE) 06/05/16 17:10 Urine Blood NEGATIVE (NEGATIVE) 06/05/16 17:10 Urine Nitrate NEGATIVE (NEGATIVE) 06/05/16 17:10 Urine Bilirubin NEGATIVE (NEGATIVE) 06/05/16 17:10 Urine Urobilinogen 1.0 E.U./dL (0.2 - 1.0) 06/05/16 17:10 Ur Leukocyte Esterase NEGATIVE (NEGATIVE) 06/05/16 17:10 Urine RBC NONE SEEN /hpf (0-5) 06/05/16 17:10 Urine WBC 0-2 /hpf (0-5) 06/05/16 17:10 Ur Epithelial Cells OCCASIONAL /lpf (FEW) 06/05/16 17:10 Urine Bacteria OCCASIONAL /hpf (NONE SEEN) 06/05/16 17:10 Urine Yeast FEW /hpf (NONE SEEN) H 06/05/16 17:10 Vancomycin Trough 13.6 ug/mL (10-20) 06/11/16 07:30 - Physical Exam Vitals and I&O: Vital Signs Temp 97.2 F 06/13/16 08:00 Pulse 62 06/13/16 08:00 Resp 18 06/13/16 08:00 BP 126/77 06/13/16 08:00 Pulse Ox 96 06/13/16 08:00 Intake & Output 06/12/16 06/13/16 06/13/16 17:59 06:59 18:59 Intake Total 100 Balance 100 Intake: Intake, IV Amount 100 Ampicillin Sodium/ 100 Sulbactam 3 gm In Sodium Chloride 0.9% 100 ml @ 100 mls/hr IV Q6HR [facility] Rx #:[id number] Oral Other: # Voids Active Medications: Current Medications Acetaminophen (Tylenol) 650 mg PO Q6H PRN PRN Reason: Mild Pain/Headache/T above 101 Stop: 08/04/16 08:24 Acetaminophen/Hydrocodone Bitart ([place] 10 Mg/325 Mg) 1 tab PO Q6H PRN PRN Reason: Pain (Severe) Stop: 08/04/16 08:24 Last Admin: 06/08/16 09:28 Dose: 1 tab Acetaminophen/Hydrocodone Bitart ([place] 5mg/325mg) 1 tab PO Q6H PRN PRN Reason: Moderate Pain Stop: 08/04/16 08:24 Last Admin: 06/13/16 11:20 Dose: 1 tab Al Hydrox/Mg Hydrox/Simethicone (Maalox) 30 ml PO Q6H PRN PRN Reason: Constipation Stop: 08/04/16 08:24 Enoxaparin Sodium (Lovenox) 90 mg SUBQ Q12HR [facility] Stop: 08/04/16 20:59 Last Admin: 06/13/16 08:44 Dose: 90 mg Gabapentin (Neurontin) 300 mg PO TID [facility] Stop: 08/04/16 08:59 Last Admin: 06/13/16 08:30 Dose: 300 mg Ampicillin Sodium/Sulbactam (Sodium 3 gm/ Sodium Chloride) 100 mls @ 100 mls/ hr IV Q6HR [facility] Stop: 08/08/16 17:59 Last Admin: 06/13/16 11:19 Dose: 100 mls/hr Lorazepam (Ativan) 1 mg PO Q6H PRN; Protocol PRN Reason: Anxiety/Agitation Stop: 08/04/16 08:24 Last Admin: 06/08/16 13:25 Dose: 1 mg Magnesium Hydroxide (Milk Of Magnesia) 30 ml PO HS PRN PRN Reason: Constipation Stop: 08/04/16 08:24 Miscellaneous (Lovenox Subq Per Pharmacy) 1 [facility] PRN TUCKER PRN Reason: Protocol Stop: 08/04/16 08:44 Miscellaneous (Zosyn Iv Per Pharmacy) 1 [facility] PRN PRN PRN Reason: PROTOCOL Stop: 08/04/16 08:37 Ondansetron HCl (Zofran Odt) 4 mg PO Q6H PRN PRN Reason: Nausea / Vomiting Stop: 08/04/16 08:24 Phenytoin (Dilantin) 100 mg PO TID [facility] Stop: 08/04/16 08:59 Last Admin: 06/13/16 08:30 Dose: 100 mg Sodium Chloride (Saline Flush) 10 ml IV QSHIFT [facility] Stop: 08/04/16 19:59 Last Admin: 06/13/16 08:31 Dose: 10 ml Warfarin Sodium (Coumadin Per Pharmacy) 1 [facility] PRN PRN; Protocol PRN Reason: RX MONITORING Stop: 08/12/16 13:26 Nutritional Asmnt/Malnutr-PDOC - Dietary Evaluation Malnutrition Findings (Please click <Entered> for more info): Nutritional Asmnt/Malnutrition Start: 06/10/16 11: 30 Text: Status: Complete Freq: Document 06/10/16 15:07 GSUN (Rec: 06/10/16 15:23 [id number]) Nutritional Asmnt/Malnutrition Patient General Information Nutritional Screening Moderate Risk Screening Diagnosis Left lower extremity cellulitis and thrombosis Pertinent Medical Hx/Surgical Hx COPD, seizures, DVT right lower extremity, tobacco use, alcohol use, seizure disorder, cholelithiasis Subjective Information 51 year old male, lives in a van. Pt was sitting upright in bed, alert, pleasant, cooperative. Pt denied GI problems, denied difficulties eating, denied recent weight changes, stated no nutritional concerns at this time. Pt apepared nourished. Avg Po itnake 100% yesterday. Current Diet Order/ Nutrition Support Regular Pertinent Medications Maalox, MOM, Vancomycin, Morphine, Zofran, Coumadin Pertinent Labs 3/5: c reactive protein 11.2H 3/9: c reactive protin 1.8H ( improving) Nutritional Hx/Data Height 1.85 m Height (Calculated Centimeters) 185.4 Current Weight (lbs) 88.451 kg Weight (Calculated Kilograms) 88.5 Weight (Calculated Grams) 56794.5 [place] Body Weight 184lb Recent Weight Change No Weight Status Approriate GI Symptoms Food Allergies No Cultural/Ethnic/Gnosticism Belief Unknown. Usual diet at home Unknown. Skin Integrity/Comment: Adolph 19. Left leg cellulitis wound Current %PO Good (75-100%) Estimated Nutritional Goals BEE in Kcals: Using Current wt Calories/Kcals/Kg 25-30kcal/kg Kcals Calculated 2213-2655kcal Protein: Using Current wt Protein g/kg/kg Protein Calculated 88g Fluid: ml 2213-2655ml (1ml/kcal) Nutritional Problem 1. Problem Problem No nutritional problems at this time. Intervention/Recommendation Comments 1. Continue with regular diet. Avg PO intake is adequate. Expected Outcomes/Goals Expected Outcomes/Goals 1. Po intake continue to meet at least 75% of estimated nutritional needs.
--- NOTE | 2016-06-13 22:14 | Progress Notes ---
SUBJECTIVE: The patient is awake, alert. The patient is on IV antibiotics. The patient is receiving inpatient wound care. The patient is receiving inpatient rehab therapy. The patient's Coumadin was stopped for unknown reason yesterday. OBJECTIVE: VITAL SIGNS: Temperature 97.2, pulse 62, blood pressure 126/77, respiratory 18, O2 sat on room air. CARDIOVASCULAR: S1 and S2. RESPIRATORY: Clear. GASTROINTESTINAL: Soft. Positive bowel sounds. LABORATORY DATA: Hematology: WBC 5.1, hemoglobin 13.0, hematocrit 38.4, platelet count of 163, 14% monocytes. ESR is 46, PT 17.9, INR 1.67. Chemistry: Sodium 134, potassium 3.7, chloride 104, bicarbonate 21, anion gap 12, BUN 12, creatinine 0.5. GFR is more than 60, glucose 98, calcium 9.3. Microbiology: MRSA screen 06/05/2016 negative. Left leg wound culture from 06/05/2016 shows Acinetobacter lwoffii. ASSESSMENT: 1. Sepsis. 2. Left lower extremity cellulitis secondary to Acinetobacter lwoffii. 3. Leukopenia (improved). 4. Anemia. 5. Hyponatremia. 6. Hepatomegaly. 7. Cholelithiasis. 8. Chronic obstructive pulmonary disease. 9. Epilepsy 10. Left lower extremity popliteal deep venous thrombosis. 11. History of deep venous thrombosis, right lower extremity. PLAN: Continue current medications and treatment. Obtain labs in a.m. Continue inpatient wound care. Continue inpatient rehab therapy. Resume Coumadin per pharmacy. We will obtain an evaluation by Hematology. Further consults. mri manager for discharge planning. JOB# [id number] MTDTati
[2016-06-14] MEDS: Ampicillin Sodium/Sulbactam 3 GM in Sodium Chloride 0.9% 100 ML IV SCH ×6 (00:29→11:54)
[2016-06-14 05:57] LABS: HEMATOCRIT 39.9 % (39.0-49.0); HEMOGLOBIN 13.7 gm/dL (13.2-17.3); MEAN CELL VOLUME 101.9 fl (80-99); MEAN CORPUSCULAR HEMOGLOBIN 34.9 pg (26.0-30.0); MEAN CORPUSCULAR HGB CONC 34.2 pg (28.0-36.0); MEAN PLATELET VOLUME 8.6 fl; PLATELET COUNT 192 Th/cmm (150-400); RED BLOOD COUNT 3.92 Mil/cmm (4.30-5.70); RED CELL DISTRIBUTION WIDTH 13.4 % (11.5-20.0); WHITE BLOOD COUNT 4.4 Th/cmm (4.8-10.8)
[2016-06-14 06:03] LABS: INR 1.57 (0.5-1.4); PROTHROMBIN TIME (TEST) 16.7 SECONDS (9.5-11.5)
[2016-06-14 06:10] LABS: ANION GAP 10.4 (7.0-16.0); BUN - UREA NITROGEN 13 mg/dL (7-25); CALCIUM SERUM 9.7 mg/dL (8.6-10.3); CARBON DIOXIDE 23.5 mEq/L (21.0-31.0); CHLORIDE 103 mEq/L (98-107); CREATININE - SERUM 0.5 mg/dL (0.7-1.3); GLUCOSE 90 mg/dL (70-105); POTASSIUM SERUM 3.9 mEq/L (3.5-5.1); SODIUM SERUM 133 mEq/L (136-145)
[2016-06-14 08:37] LABS: TOTAL CELLS COUNTED 100
[2016-06-14 08:38] LABS: ANISOCYTOSIS 1+; EOSINOPHIL 3 % (0-5); NEUTROPHILS 31 % (40-80); PLATELET ESTIMATE ADEQUATE (NORMAL); PLATELET MORPHOLOGY NORMAL (NORMAL)
[2016-06-14] MEDS: Hydrocodone/APAP 10 mg/325 mg Tab PO PRN (08:58)
[2016-06-14] MEDS: Enoxaparin 100 mg/mL 1mL Syr SUBQ SCH (08:59)
--- NOTE | 2016-06-14 14:58 | Infectious Disease Prog Note ---
Infectious Disease Subjective - Review of Systems Service Date: 06/14/16 Subjective: cc cellulitis dvt hpi- pt wound cx acinitobacter, schedule for d/c plan prescption given. onpo augmentin x 7 days ros no fever o/e nvss chest clar abd soft cellulitis less Infectious Disease Objective - Results Result Diagrams: 06/14/16 05:35 06/14/16 05:35 Recent Labs: Laboratory Last Values WBC 4.4 Th/cmm (4.8-10.8) L 06/14/16 05:35 RBC 3.92 Mil/cmm (4.30-5.70) L 06/14/16 05:35 Hgb 13.7 gm/dL (13.2-17.3) 06/14/16 05:35 Hct 39.9 % (39.0-49.0) 06/14/16 05:35 MCV 101.9 fl (80-99) H 06/14/16 05:35 MCH 34.9 pg (26.0-30.0) H 06/14/16 05:35 MCHC Differential 34.2 pg (28.0-36.0) 06/14/16 05:35 RDW 13.4 % (11.5-20.0) 06/14/16 05:35 Plt Count 192 Th/cmm (150-400) 06/14/16 05:35 MPV 8.6 fl 06/14/16 05:35 Neutrophils % 48.3 % (40.0-80.0) 06/13/16 05:31 Band Neutrophils % 2 % (0-10) 06/12/16 05:20 Lymphocytes % 34.0 % (20.0-50.0) 06/13/16 05:31 Monocytes % 14.7 % (2.0-10.0) H 06/13/16 05:31 Eosinophils % 2.2 % (0.0-5.0) 06/13/16 05:31 Basophils % 0.8 % (0.0-2.0) 06/13/16 05:31 Neutrophils (Manual) 31 % (40-80) L 06/14/16 05:35 Lymphocytes 46 % (20-50) 06/14/16 05:35 Monocytes 20 % (2-10) H 06/14/16 05:35 Eosinophils 3 % (0-5) 06/14/16 05:35 Basophils 2 % (0-3) 06/12/16 05:20 Atypical Lymphocytes 2 % 06/08/16 05:15 Platelet Estimate ADEQUATE (NORMAL) 06/14/16 05:35 Platelet Morphology NORMAL (NORMAL) 06/14/16 05:35 Anisocytosis 1+ 06/14/16 05:35 Macrocytosis 1+ 06/14/16 05:35 RBC Morph Micro Appear ABNORMAL (NORMAL) 06/14/16 05:35 ESR 39 mm/hr (0-20) H 06/14/16 05:35 PT 16.7 SECONDS (9.5-11.5) H 06/14/16 05:35 INR 1.57 (0.5-1.4) H 06/14/16 05:35 Sodium 133 mEq/L (136-145) L 06/14/16 05:35 Potassium 3.9 mEq/L (3.5-5.1) 06/14/16 05:35 Chloride 103 mEq/L (98-107) 06/14/16 05:35 Carbon Dioxide 23.5 mEq/L (21.0-31.0) 06/14/16 05:35 Anion Gap 10.4 (7.0-16.0) 06/14/16 05:35 BUN 13 mg/dL (7-25) 06/14/16 05:35 Creatinine 0.5 mg/dL (0.7-1.3) L 06/14/16 05:35 Est GFR ( Amer) > 60.0 ml/min (>90) 06/14/16 05:35 Est GFR (Non-Af Amer) > 60.0 ml/min 06/14/16 05:35 BUN/Creatinine Ratio 26.0 06/14/16 05:35 Glucose 90 mg/dL (70-105) 06/14/16 05:35 POC Glucose 95 MG/DL (70 - 105) 06/05/16 11:22 Calcium 9.7 mg/dL (8.6-10.3) 06/14/16 05:35 Total Bilirubin 0.5 mg/dL (0.3-1.0) 06/11/16 06:00 AST 36 U/L (13-39) 06/11/16 06:00 ALT 24 U/L (7-52) 06/11/16 06:00 Alkaline Phosphatase 70 U/L (34-104) 06/11/16 06:00 C-Reactive Protein 1.1 mg/dL (0.0-0.9) H 06/14/16 05:35 Total Protein 7.1 gm/dL (6.0-8.3) 06/11/16 06:00 Albumin 3.4 gm/dL (4.2-5.5) L 06/11/16 06:00 Globulin 3.7 gm/dL 06/11/16 06:00 Albumin/Globulin Ratio 0.9 (1.0-1.8) L 06/11/16 06:00 Urine Source CLEAN C 06/05/16 17:10 Urine Color ORANGE 06/05/16 17:10 Urine Clarity CLEAR (CLEAR) 06/05/16 17:10 Urine pH 8.5 06/05/16 17:10 Ur Specific [place] 1.015 (1.005-1.030) 06/05/16 17:10 Urine Protein NEGATIVE mg/dL (NEGATIVE) 06/05/16 17:10 Urine Glucose (UA) NEGATIVE mg/dL (NEGATIVE) 06/05/16 17:10 Urine Ketones TRACE mg/dL (NEGATIVE) 06/05/16 17:10 Urine Blood NEGATIVE (NEGATIVE) 06/05/16 17:10 Urine Nitrate NEGATIVE (NEGATIVE) 06/05/16 17:10 Urine Bilirubin NEGATIVE (NEGATIVE) 06/05/16 17:10 Urine Urobilinogen 1.0 E.U./dL (0.2 - 1.0) 06/05/16 17:10 Ur Leukocyte Esterase NEGATIVE (NEGATIVE) 06/05/16 17:10 Urine RBC NONE SEEN /hpf (0-5) 06/05/16 17:10 Urine WBC 0-2 /hpf (0-5) 06/05/16 17:10 Ur Epithelial Cells OCCASIONAL /lpf (FEW) 06/05/16 17:10 Urine Bacteria OCCASIONAL /hpf (NONE SEEN) 06/05/16 17:10 Urine Yeast FEW /hpf (NONE SEEN) H 06/05/16 17:10 Vancomycin Trough 13.6 ug/mL (10-20) 06/11/16 07:30 - Physical Exam Vitals and I&O: Vital Signs Temp 97.3 F 06/14/16 11:44 Pulse 64 06/14/16 11:44 Resp 20 06/14/16 11:44 BP 99/61 06/14/16 11:44 Pulse Ox 96 06/14/16 11:44 Intake & Output 06/13/16 06/14/16 06/14/16 18:59 06:59 18:59 Intake Total 1000 340 106.667 Balance 1000 340 106.667 Intake: Intake, IV Amount 200 100 106.667 Ampicillin Sodium/ 200 100 106.667 Sulbactam 3 gm In Sodium Chloride 0.9% 100 ml @ 100 mls/hr IV Q6HR [facility] Rx #:[id number] Oral 800 240 Other: # Voids 3 2 # Bowel Movements 1 0 Stool Characteristics Soft Formed Nutritional Asmnt/Malnutr-PDOC - Dietary Evaluation Malnutrition Findings (Please click <Entered> for more info): Nutritional Asmnt/Malnutrition Start: 06/10/16 11: 30 Text: Status: Complete Freq: Document 06/10/16 15:07 SHUN (Rec: 06/10/16 15:23 [email or web address]) Nutritional Asmnt/Malnutrition Patient General Information Nutritional Screening Moderate Risk Screening Diagnosis Left lower extremity cellulitis and thrombosis Pertinent Medical Hx/Surgical Hx COPD, seizures, DVT right lower extremity, tobacco use, alcohol use, seizure disorder, cholelithiasis Subjective Information 51 year old male, lives in a van. Pt was sitting upright in bed, alert, pleasant, cooperative. Pt denied GI problems, denied difficulties eating, denied recent weight changes, stated no nutritional concerns at this time. Pt apepared nourished. Avg Po itnake 100% yesterday. Current Diet Order/ Nutrition Support Regular Pertinent Medications Maalox, MOM, Vancomycin, Morphine, Zofran, Coumadin Pertinent Labs 3/5: c reactive protein 11.2H 3/9: c reactive protin 1.8H ( improving) Nutritional Hx/Data Height 1.85 m Height (Calculated Centimeters) 185.4 Current Weight (lbs) 88.451 kg Weight (Calculated Kilograms) 88.5 Weight (Calculated Grams) 81830.5 [place] Body Weight 184lb Recent Weight Change No Weight Status Approriate GI Symptoms Food Allergies No Cultural/Ethnic/Mandaeism Belief Unknown. Usual diet at home Unknown. Skin Integrity/Comment: Adolph 19. Left leg cellulitis wound Current %PO Good (75-100%) Estimated Nutritional Goals BEE in Kcals: Using Current wt Calories/Kcals/Kg 25-30kcal/kg Kcals Calculated 2213-2655kcal Protein: Using Current wt Protein g/kg/kg Protein Calculated 88g Fluid: ml 2213-2655ml (1ml/kcal) Nutritional Problem 1. Problem Problem No nutritional problems at this time. Intervention/Recommendation Comments 1. Continue with regular diet. Avg PO intake is adequate. Expected Outcomes/Goals Expected Outcomes/Goals 1. Po intake continue to meet at least 75% of estimated nutritional needs.
--- NOTE | 2016-06-30 21:32 | Discharge Summary ---
DISCHARGE DIAGNOSES: 1. Sepsis. 2. Left lower extremity cellulitis secondary to Acinetobacter lwoffii. 3. Leukopenia. 4. Anemia. 5. Hyponatremia. 6. Hepatomegaly. 7. Cholelithiasis. 8. Chronic obstructive pulmonary disease. 9. Epilepsy. 10. History of deep venous thrombosis of right lower extremity. HOSPITAL COURSE: The patient is a 51-year-old white male who was transferred from [place] from the ER. The patient was admitted with diagnosis of left lower extremity cellulitis, left lower extremity popliteal vein DVT, COPD, history of DVT of right lower extremity. The patient admitted to medical/surgical unit. Consultation obtained. Hematology consultation obtained from Dr. Rice who recommended that the patient was placed on Lovenox and Coumadin to maintain INR between 2 and 3. The anticoagulation should be for 6 months. Infectious disease consultation, Dr. Alcira Amado, who recommended the patient to be placed on empiric coverage with Zosyn. Results of gomez culture showed MRSA screen from 06/05/2016 was negative. Wound culture showed Acinetobacter lwoffii. The patient responded well to IV antibiotics. The patient's anticoagulation has been managed by pharmacy with overlap initially of Lovenox and Coumadin. After the patient was in therapeutic range, the patient was changed to p.o. Coumadin. The patient was discharged home and arranged for to manage his Lovenox and Coumadin through the ER. JOB# [id number] LUCA
== END 2016-06-14 13:51 | disposition home or self-care (01) | DRG 720 ==
LOC: MSI 07:35
PROVIDERS: ADMIT Preventive Medicine Preventive Medicine/Occupational Environmental Medicine; ATTEND Preventive Medicine Preventive Medicine/Occupational Environmental Medicine
DX: A41.9 Sepsis, unspecified organism (principal); D61.818 Other pancytopenia; D69.6 Thrombocytopenia, unspecified; I82.432 Acute embolism and thrombosis of left popliteal vein; E87.1 Hypo-osmolality and hyponatremia; L03.116 Cellulitis of left lower limb; J44.9 Chronic obstructive pulmonary disease, unspecified; G40.909 Epilepsy, unspecified, not intractable, without status epilepticus; F17.210 Nicotine dependence, cigarettes, uncomplicated; D64.9 Anemia, unspecified; E87.6 Hypokalemia; E01.0 Iodine-deficiency related diffuse (endemic) goiter; K80.20 Calculus of gallbladder without cholecystitis without obstruction; B96.89 Other specified bacterial agents as the cause of diseases classified elsewhere
CPT/HCPCS: 36415-UA; 76700-TC; 80048-TC; 80053-TC; 80202-TC; 81001-TC; 82948-90; 85007-TC; 85025-TC; 85027-TC; 85610-TC; 85652-TC; 86141-TC; 87070-90; 87075-90; 87205-90; 97530; J0295; J1650; J1815; J2270; J2543; J3370; J7040; X3904; Z7610

== ENCOUNTER 2016-06-15 09:23 | Emergency (ER) | payer OTHER ==
--- NOTE | 2016-06-15 09:59 | ED Physician Chart ---
Chief Complaint/HPI - Patient Information Date Seen:: 06/15/16 Time Seen:: 09:45 Chief Complaint:: pt presents for F/U Lab tests History of Present Illness:: pt recently discharged from [facility] with Dx of DVT; pt is Rx with Coumadin; pt is at ER for F/U PT, PTT, and INR Blood Tests Allergies:: Allergies Allergy/AdvReac Type Severity Reaction Status Date / Time No Known Allergies Allergy Verified 06/05/16 09:29 Vitals:: Vital Signs - 8 hr 06/15/16 09:39 Temp 97.5 F HR 65 RR 16 BP 115/68 O2 Sat % 98 Review of Systems - Review of Systems General/Constitutional: No fever, No chills, No weight loss, No weakness, No diaphoresis, No edema, No loss of appetite Skin: No skin lesions, No rash, No bruising Head: No headache, No light-headedness Eyes: No loss of vision, No pain, No diplopia ENT: No earache, No nasal drainage, No sore throat, No tinnitus Neck: No neck pain, No swelling, No thyromegaly, No stiffness, No mass noted Cardio Vascular: No chest pain, No palpitations, No PND, No orthopnea, No edema Pulmonary: No SOB, No cough, No sputum, No wheezing GI: No nausea, No vomiting, No diarrhea, No pain, No melena, No hematochezia, No constipation, No hematemesis G/U: No dysuria, No frequency, No hematuria Musculoskeletal: No bone or joint pain, No back pain, No muscle pain Endocrine: No polyuria, No polydipsia Psychiatric: No prior psych history, No depression, No anxiety, No suicidal ideation Hematopoietic: No bruising, No lymphadenopathy Allergic/Immuno: No urticaria, No angioedema Neurological: No syncope, No focal symptoms, No weakness, No paresthesia, No headache, No seizure, No dizziness, No confusion, No vertigo Past Medical History - Past Medical History Past Medical History: Asthma/COPD, DVT/PE, Seizures Family History: HTN Social History: Smoker, Lives Alone Surgical History: None Psychiatricy History: None Medication: Reviewed Family Medical History - Family Member Mother History Unknown: Yes Physical Exam - Physical Examination General/Constitutional: Awake, Well-developed, well-nourished, Alert, No distress, GCS 15, Non-toxic appearing, Ambulatory Head: Atraumatic Eyes: Lids, conjuctiva normal, PERRL, EOMI Skin: Nl inspection, No rash, No skin lesions, No ecchymosis, Well hydrated, No lymphadenopathy ENMT: External ears, nose nl, Nasal exam nl, Lips, teeth, gums nl Neck: Nontender, Full ROM w/o pain, No JVD, No nuchal rigidity, No bruit, No mass, No stridor Respiratory: Nl effort/Exclusion, Clear to Auscultation, No Wheeze/Rhonchi/Rales Cardio Vascular: RRR, No murmur, gallop, rubs, NL S1 S2 GI: No tenderness/rebounding/guarding, No organomegaly, No hernia, Normal BS's, Nondistended, No mass/bruits, No McBurney tenderness : No CVA tenderness Extremities: No tenderness or effusion, Full ROM, normal strength in all extremities, No edema, Normal digits & nails Neuro/Psych: Alert/oriented, DTR's symmetric, Normal sensory exam, Normal motor strength, Judgement/insight normal, Mood normal, Normal gait, No focal deficits Misc: normal gait, Normal back, No paraspinal tenderness ED Septic Shock - . Is Septic Shock (SBP<90, OR Lactate>4 mmol\L) present?: No - <6hrs of presentation: Vital Signs: Vital Signs - 8 hr 06/15/16 09:39 Temp 97.5 F HR 65 RR 16 BP 115/68 O2 Sat % 98 Assessment of Lungs: Lung CTA bilateral, Ventilator, Decreased BS, Rhonchi, No Rhonchi, Rales, No Rales, Wheezing, No Wheezing, Stridor, No Stridor, Other, Documented in PE Assessment of Heart: RRR, Thrill, No thrill, Gallops, No Gallops, S3, S4, Rub, No Rub, Murmur, No Murmur, Other, Documented in PE Capillary refill evaluation: Capillary refill < 2 secs, Capillary refill > 2 secs, Other, Documented in PE Skin Exam: Warm, Dry, Good Turgur, Poor Turgor, Pallor, No Pallor, Diaphoretic ( pt is asymptomatic upon discharge), No Diaphoresis, Mottled, No Mottling, Cyanotic, Edema, No Edema, Erythema, No Erythema, Other, Documented in PE Reassessment (Disposition) - Reassessment Reassessment Condition:: Improved - Diagnosis Diagnosis:: DVT - Aftercare/Follow up Instructions Aftercare/Follow-Up Instructions:: Counseled pt regarding lab results/diagnosis & need follow up, Refer to Discharge Instructions, Counseled pt & family regarding lab results/diagnosis & need follow up - Patient Disposition Discharge/Transfer:: Home (ACIs given for all Dx; RTER prn if existing s/s reoccur and/or get worse and/or any other new s/s occur; refer to Home School Teacher/ Vascular Surgeon REYNALDO; F/U with PMD in one day or prn; RTER prn if concerned) Condition at Disposition:: Stable, Improved (RTER prn if concerned) ED Discharge Plan - Patient Disposition Admit/Discharge/Transfer: PT DISCHARGED HOME Condition at Disposition: Improved Instructions: Warfarin, [id number] Accepting Physician: Pancho Odonnell [Other]
[2016-06-15 10:27] LABS: INR 2.57 (0.5-1.4); PROTHROMBIN TIME (TEST) 28.1 SECONDS (9.5-11.5)
== END 2016-06-15 11:25 | disposition home or self-care (01) ==
LOC: ER 09:23
DX: I82.409 Acute embolism and thrombosis of unspecified deep veins of unspecified lower extremity (principal); J45.909 Unspecified asthma, uncomplicated; J44.9 Chronic obstructive pulmonary disease, unspecified; F17.200 Nicotine dependence, unspecified, uncomplicated
CPT/HCPCS: 36415-UA; 85610-TC; 85730-TC; Z7502